=== PATIENT | female | born 2000 | race Two or more races ===

== ENCOUNTER 2024-06-11 10:11 | Emergency (ER) | payer MEDICAID, SELFPAY ==
[2024-06-11 10:24] VITALS: BP 107/73; PULSE 85; TEMP 36.9; O2SAT 99; BMI 25.3
[2024-06-11 11:02] LABS: Influenza Virus A Antigen Negative; Influenza Virus B Antigen Negative; Internal Control Within Normal Limits; SARS-CoV-2 Ag NEGATIVE (NEGATIVE); Strep A Antigen Screen Negative
--- NOTE | 2024-06-11 11:24 | ED_ITS ---
HPI HPI - General Adult General Chief complaint: Upper Respiratory Infection Stated complaint: SORE THROAT, SWOLLEN GUMS Time Seen by Provider: 06/11/24 10:48 Source: patient Mode of arrival: walk-in Limitations: no limitations History of Present Illness HPI narrative: The patient is coming with a dental and the tongue ulcer that she developed over the last few days also some sore throat She denies any other complaints Related Data Allergies Allergy/AdvReac Type Severity Reaction Status Date / Time No Known Drug Allergies Allergy Verified 06/11/24 10:24 Review of Systems ROS Status of ROS 10 or more systems reviewed and unremark able except as noted in history and below PFSH PFSH Social History Little interest or pleasure in doing things: not at all Feeling down, depressed, or hopeless: not at all Exam Narrative Exam Narrative: Nurses notes and vital signs reviewed and patient is not hypoxic. General: Well-appearing and in no apparent distress. Skin: Warm, dry, no pallor noted. No rash. Head: Normocephalic, atraumatic. Neck: Supple, non-tender. Eye: Pupils are equal, round and EOMI. No scleral icterus. Ears, Nose, Mouth, and Throat: TM are clear, no nasal mucosal hypertrophy. Oral mucosa is moist, no posterior oropharynx erythema, uvula is mid-line. Patient have a small aphthous ulcer on the tongue she did have no other complaints and airways did not show any compromise Cardiovascular: Regular Rate and Rhythm without murmur, gallop or rub. Respiratory: No accessory muscle use or respiratory distress. Lungs are clear to auscultation, no wheezing, rales or rhonchi Chest Wall: no tenderness Back: No midline thoracic or lumbar vertebral tenderness. No CVA tenderness Musculoskeletal: normal ROM, no calf or popliteal tenderness, no lower extremity edema/swelling GI: Abdomen is soft, non-distended. Normal bowel sounds. No masses appreciated. No tenderness to palpation. No rebound, guarding, or rigidity noted. Neurological: A&O x4. No cranial nerve dysfunction observed. No truncal ataxia. Moves all extremities. Sensation intact. Psychiatric: Cooperative and interactive. Normal mood and affect. Constitutional Vital Signs, click to edit/add: Last Vital Signs Temp 98.5 F 06/11/24 10:24 Pulse 85 06/11/24 10:24 Resp 18 06/11/24 10:24 BP 107/73 04/29/25 10:24 Pulse Ox 99 06/11/24 10:24 O2 Del Method Room Air 06/11/24 10:24 Course Vital Signs Vital signs: Vital Signs Temperature 98.5 F 06/11/24 10:24 Pulse Rate 85 06/11/24 10:24 Respiratory Rate 18 06/11/24 10:24 Blood Pressure 107/73 06/11/24 10:24 Pulse Oximetry 99 06/11/24 10:24 Oxygen Delivery Method Room Air 06/11/24 10:24 Temperature 98.5 F 06/11/24 10:24 Pulse Rate 85 06/11/24 10:24 Respiratory Rate 18 06/11/24 10:24 Blood Pressure 107/73 06/11/24 10:24 Pulse Oximetry 99 06/11/24 10:24 Oxygen Delivery Method Room Air 06/11/24 10:24 Medical Decision Making MDM Narrative Medical decision making narrative: Strep test is negative The patient just to continue supportive care with BMX The patient is to follow up with primary care physician in next 2-3 days or to return to the emergency department should any of the signs or symptoms worsen or new symptoms develop. The patient agrees with the following Diagnosis and Treatment plan and the patient will be discharged home. Lab Data Labs: Lab Results 06/11/24 Range/Units 10:26 Influenza Type A Ag Negative Influenza Type B Ag Negative SARS-CoV-2 Ag (CV2AG) Negative (NEGATIVE) Streptococcus Screen Negative Discharge Plan Discharge Chief Complaint: Upper Respiratory Infection Clinical Impression: Pharyngitis, Aphthous ulcer Patient Disposition: Home, Self-Care Time of Disposition Decision: 11:26 Condition: Good Mode of Transportation: Private Vehicle Print Language: [place] Instructions: Pharyngitis (ED), Oral Mucositis (ED) Referrals: [facility] [Primary Care Provider, Unknown] - 1 week Discharge Date/Time: 06/11/24 11:34
== END 2024-06-11 11:34 | disposition home or self-care (01) ==
PROVIDERS: Emergency Provider Emergency Medicine
DX: J02.9 Acute pharyngitis, unspecified (principal); K12.0 Recurrent oral aphthae
CPT/HCPCS: 87070; 87804; 87811; 87880; 99283